=== PATIENT | female | born 1975 | race Caucasian/White ===

== ENCOUNTER 2025-06-24 16:14 | Emergency (ER) | payer OTHER ==
[2025-06-24] MEDS ORDERED: Metoclopramide HCl 10 MG (2 mL) VIAL ONE (16:45)
[2025-06-24] MEDS ORDERED: diphenhydrAMINE 50 MG/ML VIAL ONE (16:45)
[2025-06-24] MEDS ORDERED: Ketorolac Tromethamine 30 MG (1 mL) VIAL ONE (18:15)
== END 2025-06-24 20:15 | disposition home or self-care (01) ==
LOC: NAV ERS 16:14
DX: G43.919 Migraine, unspecified, intractable, without status migrainosus (principal); I10 Essential (primary) hypertension; Z87.891 Personal history of nicotine dependence; Z79.899 Other long term (current) drug therapy
CPT/HCPCS: 96365; 96375; J1200; J1885; J2765; J7030

== ENCOUNTER 2025-10-03 15:25 | Emergency (ER) | payer OTHER ==
[2025-10-03] MEDS ORDERED: predniSONE 20 MG TAB ONE (16:31)
[2025-10-03] MEDS ORDERED: Albuterol 2.5 MG (0.5 mL) NEB ONE (16:35)
== END 2025-10-03 17:30 | disposition home or self-care (01) ==
LOC: NAV ERS 15:25
DX: J44.1 Chronic obstructive pulmonary disease with (acute) exacerbation (principal); F17.210 Nicotine dependence, cigarettes, uncomplicated; I10 Essential (primary) hypertension; K21.9 Gastro-esophageal reflux disease without esophagitis; Z79.899 Other long term (current) drug therapy
CPT/HCPCS: 71046; 87428; 94640; J7512; J7611